=== PATIENT | male | born 1990 | race Caucasian/White ===

== ENCOUNTER 2017-07-25 21:57 | Emergency (ER) | payer SELFPAY ==
[2017-07-25] MEDS: CEPHALEXIN 250 MG CAPSULE PO ONE (22:50)
[2017-07-25] MEDS: KETOROLAC TROMETHAMINE 60 MG/2 ML VIAL IM ONE (22:50)
[2017-07-25] MEDS: BENZONATATE 100 MG CAPSULE PO ONE (22:50)
[2017-07-25] MEDS: ORPHENADRINE CITRATE 60 MG/2ML IM ONE (22:50)
--- NOTE | 2017-07-25 23:01 | ED Physician Documentation ---
Abdominal Pain - HISTORIAN Historian: patient - HPI Stated Complaint: LUQ/Lt lower rib pain Chief Complaint: Abdominal Pain Additonal Information: cough, prod Onset: days ago (2-3) Duration: sudden-onset Timing: worse Context: denies: out of country travel, bad food, recent trauma Severity: moderate Quality: cramping, sharp Front/Back of Body, Lg (Color): 1 - pain Associated Symptoms: other (cough) Relieved by: remaining still - ROS CONST: no problems GI/: none CVS/RESP: hurts to breath, cough EYES/ENT: none MS/SKIN/LYMPH: none NEURO/PSYCH: none - SOCIAL HX Smoking History: cigarettes Alcohol Use: none Drug Use: none - FAMILY HX Family History: no significant history - PAST HX Past History: none Ischemic Bowel Risk Factors: none Other History: none Surgeries/Procedures: none Immunizations: referred to PCP Home Medications: Ambulatory Orders Medication Instructions Recorded Albuterol Sulfate [ProAir 07/25/17 [employer]piClick] Allergies/Adverse Reactions: Allergies Allergy/AdvReac Type Severity Reaction Status Date / Time No Known Allergies Allergy Verified 07/25/17 22:20 - VITAL SIGNS Vital Signs: Vital Signs Temp Pulse Resp BP Pulse Ox 98.8 F 102 H 16 124/65 96 07/25/17 21:57 07/25/17 21:57 07/25/17 21:57 07/25/17 21:57 07/25/17 21:57 - REVIEWED ASSESSMENTS Nursing Assessment Reviewed: Yes Vitals Reviewed: Yes Progress - Results/Orders Results/Orders: cxr ordered - Progress Progress: pt. given 60 mg toradol im and 60 mg norflex im, keflex 1000 mg p.o. and tessalon perles 200 mg p.o. in er Critical Care Note - Critical Care Note Total Time (mins): 0 ED Results Lab/Radiology - Lab Results Lab Results: none ordered - Radiology Radiology Impressions: cxr clear - Orders Orders: ED Orders Category Date Time Status CHEST 2 VIEW [CHEST P.A.&LAT 2 VIEWS] [RAD] Stat Exams 09/21/17 Ordered Benzonatate [Tessalon] Med 07/25/17 22:48 Once 200 mg PO NOW ONE Cephalexin [Keflex] Med 07/25/17 22:45 Once 1,000 mg PO NOW ONE Ketorolac Tromethamine [Toradol] Med 07/25/17 22:45 Once 60 mg IM NOW ONE Orphenadrine Citrate [Norflex] Med 07/25/17 22:45 Once 60 mg IM NOW ONE Abdominal Pain Physical Exam - Physical Exam General Appearance: alert, moderate distress EENT: eye inspection normal, ENT inspection normal, pharynx normal, no signs of dehydration, JOANNE, no nystagmus, TM's nml NECK: normal inspection, thyroid normal, supple RESPIRATORY: no resp distress, chest non-tender, breath sounds normal. No: wheezes, rales, rhonchi CVS: reg rate & rhythm, heart sounds normal, equal pulses, no murmur, no gallop , PMI nml, no JVD, no friction rub ABDOMEN: soft, no organomegaly, normal bowel sounds, no abdominal bruit, no distension, tenderness (left upper abdomen mid axillary line). No: mass BACK: normal inspection, no CVA tenderness SKIN: warm/dry, normal color. No: cyanosis, diaphoresis EXTREMITIES: non-tender, normal range of motion, no evidence of injury, no edema NEURO: oriented X3, CN's nml as tested, motor nml, sensation nml, mood/affect nml, cognition normal Vital Signs: Vital Signs Temp Pulse Resp BP Pulse Ox 98.8 F 102 H 16 124/65 96 07/25/17 21:57 07/25/17 21:57 07/25/17 21:57 07/25/17 21:57 07/25/17 21:57 Discharge Clincal Impression: Bronchitis Abdominal wall strain Qualifiers: Encounter type: initial encounter Qualified Code(s): S39.011A - Strain of muscle, fascia and tendon of abdomen, initial encounter Referrals: Primary Doctor,No [Primary Care Provider] - 2 Days Comments: Discharged in stable condition with scripts for Keflex 500 mg 2 capsules twice daily #28, Tessalon Perles 200 mg p.o. tid #15, Parafon Forte DSC 500 mg 1 p.o. qid #20, Meloxicam 1 pill twice daily #10 Condition: Stable Disposition: 01 HOME, SELF-CARE Decision to Admit: NO Decision Time: 23:01
[2017-07-25 23:18] VITALS: BP 122/78
--- NOTE | 2017-07-25 23:22 | Diagnostic Imaging Report ---
ANNY BRASHER [facility] [address] [facility] [address] [place], [place]. [address] Report Submission Date: Jul 25, 2017 10:40:51 PM CDT Patient Study Name: MERARI STRAUSS Date: Jul 25, 2017 10:14:50 PM CDT Modality Type: CR Gender: M Description: CHEST : 86 Institution: [facility] Physician: ANNY BRASHER Chest, PA and lateral History: Chest pain, cough Findings: The heart, lungs, pleura, mediastinum and bony thorax are normal. Impression: Normal. Electronically signed on Jul 25, 2017 10:40:51 PM CDT by: Declan WINSLOW
== END 2017-07-25 23:05 | disposition home or self-care (01) ==
LOC: ED 21:57
DX: J40 Bronchitis, not specified as acute or chronic (principal); S39.011A Strain of muscle, fascia and tendon of abdomen, initial encounter; X58.XXXA Exposure to other specified factors, initial encounter; Y93.9 Activity, unspecified; Y99.9 Unspecified external cause status
CPT/HCPCS: 71020; A9270; J1885; J2360; 96372; 99283

== ENCOUNTER 2018-05-09 11:28 | Emergency (ER) | payer SELFPAY ==
--- NOTE | 2018-05-09 11:59 | ED Physician Documentation ---
Sore Throat/Dental Pain - HISTORIAN Historian: patient - HPI Stated Complaint: dental pain Chief Complaint: Dental Pain Additional Information: Dental pain woke him early this am. Tylenol PM did not help. Plans to see dentist soon. No other modifying factors or associated signs. Context: Dental Caries Associated Symptoms: denies: fever - ROS CONST: no problems - PAST HX Past History: other (thinks he has asthma, but not diagnosed. ) Allergies/Adverse Reactions: Allergies Allergy/AdvReac Type Severity Reaction Status Date / Time No Known Allergies Allergy Verified 05/09/18 11:45 Home Medications: Ambulatory Orders Medication Instructions Recorded Acetaminophen [Tylenol Extra 1,000 mg PO TID #30 tablet 05/09/18 Strength] Ibuprofen 600 mg PO Q8H PRN #20 tablet 05/09/18 Penicillin V Potassium [Pen V K] 500 mg PO Q8H #30 tablet 05/09/18 traMADol HCL [Ultram] 50 mg PO Q4H PRN #15 tablet 05/09/18 - SOCIAL HX Smoking History: cigarettes - FAMILY HX Family History: No - VITAL SIGNS Vital Signs: Vital Signs Temp Pulse Resp BP Pulse Ox 98.8 F 72 16 127/89 98 05/09/18 11:37 05/09/18 11:37 05/09/18 11:37 05/09/18 11:37 05/09/18 11:37 - REVIEWED ASSESSMENTS Nursing Assessment Reviewed: Yes Vitals Reviewed: Yes Dental Pain Physical Exam - EXAM General Appearance: alert (drowsy), mild distress Head/Neck: head nml inspection, trachea midline, no lymphadenopathy, other (#1 eroded to gum line. Erythema of gums. No discrete abscss detected. ) Eyes: eyes nml inspection Mouth/Throat: lips nml, pharynx nml, voice nml, no drooling Ear/Nose: nml inspection Respiratory: no resp. distress Extremities: nml ROM (gait and stance) Skin: warm/dry, normal color Neuro/Psych: No: weakness Discharge Clincal Impression: Pain due to dental caries Prescriptions: Acetaminophen [Tylenol Extra Strength] 1,000 mg PO TID #30 tablet Ibuprofen 600 mg PO Q8H PRN #20 tablet PRN Reason: Pain Penicillin V Potassium [Pen V K] 500 mg PO Q8H #30 tablet traMADol HCL [Ultram] 50 mg PO Q4H PRN #15 tablet PRN Reason: Pain Referrals: Primary Doctor,No [Primary Care Provider] - 2 Days Condition: Good Disposition: 01 HOME, SELF-CARE Decision to Admit: NO Decision Time: 12:00
[2018-05-09 12:01] VITALS: BP 126/81
== END 2018-05-09 12:00 | disposition home or self-care (01) ==
LOC: ED 11:28
DX: K02.9 Dental caries, unspecified (principal)
CPT/HCPCS: 99282